=== PATIENT | female | born 1960 | race Caucasian/White ===

== ENCOUNTER 2018-08-24 14:16 | Emergency (ER) | payer SELFPAY ==
[2018-08-24] MEDS ORDERED: Sodium Chloride 0.9% 1,000 ML IV ONE (14:49)
[2018-08-24] MEDS ORDERED: cloNIDine 0.1 MG Tab PO ONE ×2 (14:49→16:05)
--- NOTE | 2018-08-24 14:58 | EDM.PDOC ---
ED HPI GENERAL MEDICAL PROBLEM - General Chief Complaint: Cardiovascular Problem Stated Complaint: HIGH BLOOD PRESSURE Time Seen by Provider: 08/24/18 14:18 Source of Information: Reports: Patient History Limitations: Reports: No Limitations - History of Present Illness INITIAL COMMENTS - FREE TEXT/NARRATIVE: HISTORY AND PHYSICAL: History of present illness: Patient is a 58-year-old female who presents to the emergency room today with concerns of elevated blood pressure. She states she was at a pre-employment physical earlier this morning and had been told her blood pressure was 150/90. At that time they wanted her to wait approximately 15 minutes before rechecking her vital signs. Her re-checked blood pressure was 200s over 100s. Patient states that she has never had any problems with high blood pressure, in fact she usually has low blood pressure. Patient reports she has had a mild headache, but otherwise felt well. Reports that she recently moved here from [place] and has been stressed due to the move and major life change.Denies any fever, chills, chest pain, shortness of breath or cough. Denies any abdominal pain, nausea, vomiting, diarrhea or constipation. Denies any recent head injury, trauma or falls. Review of systems: As per history of present illness and below otherwise all systems reviewed and negative. Past medical history: As per history of present illness and as reviewed below otherwise noncontributory. Surgical history: As per history of present illness and as reviewed below otherwise noncontributory. Social history: No reported history of drug or alcohol abuse. Family history: As per history of present illness and as reviewed below otherwise noncontributory. Physical exam: General: Well-developed and well-nourished 58 she'll female. Alert and oriented. Nontoxic appearing and in no acute distress. HEENT: Atraumatic, normocephalic, pupils equal and reactive bilaterally, negative for conjunctival pallor or scleral icterus, mucous membranes moist, throat clear, neck supple, nontender, trachea midline. No drooling or trismus noted. No meningeal signs Lungs: Clear to auscultation, breath sounds equal bilaterally, chest nontender. Heart: S1S2, regular rate and rhythm without overt murmur Abdomen: Soft, nondistended, nontender. Negative for masses or hepatosplenomegaly. Negative for costovertebral tenderness. Pelvis: Stable nontender. Genitourinary: Deferred. Rectal: Deferred. Skin: Intact, warm, dry. No lesions or rashes noted. Extremities: Atraumatic, negative for cords or calf pain. Neurovascular unremarkable. Neuro: Awake, alert, oriented. Cranial nerves II through XII unremarkable. Cerebellum unremarkable. Motor and sensory unremarkable throughout. Exam nonfocal. Notes: Lab work is appropriate with no acute findings. After the clonidine and IV fluids her blood pressure is 149/92. She states she feels much better and continues to discuss her recent anxiety of moving and trying to find employment while here. The son is at the bedside and states that he will help her continue to monitor her blood pressure. We discussed following up with a primary care provider if she continues to have symptoms of anxiety. I will give her a limited amount of Ativan for home use as she does appear reliable and she shouldn't responsibly. Diagnostics: CBC, CMP, UA, EKG Therapeutics: Normal Saline, Clonidine Prescription: Ativan 0.5 (#8) Impression: High blood pressure Anxiety Plan: 1. Avoid any caffeinated products or stimulants (coffee, soft drinks, chocolate , etc...) 2. Please establish care with a primary care provider for further evaluation and management. 3. The prescribed medication as needed and as directed. This medication does cause drowsiness a do not take it will driving her needing to be functioning outside of the house. 4. Return to the ED as needed and as discussed. Definitive disposition and diagnosis as appropriate pending reevaluation and review of above. 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: Musculoskeletal History: Reports: None Neurological History: Reports: None Psychiatric History: Reports: None Endocrine/Metabolic History: Reports: None Hematologic History: Reports: None Immunologic History: Reports: None Oncologic (Cancer) History: Reports: None Dermatologic History: Reports: None - Infectious Disease History Infectious Disease History: Reports: Chicken Pox - Past Surgical History Head Surgeries/Procedures: Reports: None HEENT Surgical History: Reports: None Cardiovascular Surgical History: Reports: None Respiratory Surgical History: Reports: None GI Surgical History: Reports: None Female Surgical History: Reports: None Endocrine Surgical History: Reports: None Neurological Surgical History: Reports: None Musculoskeletal Surgical History: Reports: None Oncologic Surgical History: Reports: None Dermatological Surgical History: Reports: Plastic Surgical Reconstruction/Repair Social & Family History - Family History Cardiac: Reports: Hypertension - Tobacco Use Smoking Status *Q: Current Every Day Smoker Years of Tobacco use: 30 Packs/Tins Daily: 1 - Caffeine Use Caffeine Use: Reports: Coffee ED ROS GENERAL - Review of Systems Review Of Systems: ROS reveals no pertinent complaints other than HPI. ED EXAM, GENERAL - Physical Exam Exam: See Below (See dictation) Course - Vital Signs Last Recorded V/S: Last Vital Signs Temp 97.0 F 08/24/18 14:21 Pulse 99 08/24/18 14:21 Resp 18 08/24/18 14:21 BP 207/108 H 08/24/18 15:11 Pulse Ox 99 08/24/18 14:21 - Orders/Labs/Meds Orders: Active Orders 24 hr Category Date Time Status EKG Documentation Completion [RC] STAT Care 08/24/18 14:49 Active Labs: Laboratory Tests 08/24/18 08/24/18 08/24/18 Range/Units 15:01 15:01 15:05 WBC 11.36 H (4.0-11.0) K/uL RBC 4.41 (4.30-5.90) M/uL Hgb 14.0 (12.0-16.0) g/dL Hct 41.2 (36.0-46.0) % MCV 93.4 (80.0-98.0) fL MCH 31.7 (27.0-32.0) pg MCHC 34.0 (31.0-37.0) g/dL RDW Std Deviation 45.6 (28.0-62.0) fl RDW Coeff of Tamy 13 (11.0-15.0) % Plt Count 368 (150-400) K/uL MPV 10.20 (7.40-12.00) fL Neut % (Auto) 66.8 (48.0-80.0) % Lymph % (Auto) 26.2 (16.0-40.0) % Spencer % (Auto) 6.3 (0.0-15.0) % Eos % (Auto) 0.4 (0.0-7.0) % Baso % (Auto) 0.3 (0.0-1.5) % Neut # (Auto) 7.6 H (1.4-5.7) K/uL Lymph # (Auto) 3.0 H (0.6-2.4) K/uL Spencer # (Auto) 0.7 (0.0-0.8) K/uL Eos # (Auto) 0.1 (0.0-0.7) K/uL Baso # (Auto) 0.0 (0.0-0.1) K/uL Nucleated RBC % 0.0 /100WBC Nucleated RBCs # 0 K/uL Sodium 140 (136-145) mmol/L Potassium 3.6 (3.5-5.1) mmol/L Chloride 104 (98-107) mmol/L Carbon Dioxide 26.9 (21.0-32.0) mmol/L BUN 10 (7.0-18.0) mg/dL Creatinine 0.5 L (0.6-1.0) mg/dL Est Cr Clr Drug Dosing 99.37 mL/min Estimated GFR (MDRD) > 60.0 ml/min Glucose 99 (74-106) mg/dL Calcium 9.7 (8.5-10.1) mg/dL Total Bilirubin 0.4 (0.2-1.0) mg/dL AST 16 (15-37) IU/L ALT 18 (14-63) IU/L Alkaline Phosphatase 87 (46-116) U/L Total Protein 7.7 (6.4-8.2) g/dL Albumin 4.2 (3.4-5.0) g/dL Globulin 3.5 (2.0-3.5) g/dL Albumin/Globulin Ratio 1.2 L (1.3-2.8) Urine Color YELLOW Urine Appearance CLEAR Urine pH 6.0 (5.0-8.0) Ur Specific [place] 1.010 (1.001-1.035) Urine Protein NEGATIVE (NEGATIVE) mg/dL Urine Glucose (UA) NEGATIVE (NEGATIVE) mg/dL Urine Ketones TRACE H (NEGATIVE) mg/dL Urine Occult Blood NEGATIVE (NEGATIVE) Urine Nitrite NEGATIVE (NEGATIVE) Urine Bilirubin NEGATIVE (NEGATIVE) Urine Urobilinogen 0.2 (<2.0) EU/dL Ur Leukocyte Esterase NEGATIVE (NEGATIVE) Urine RBC 0-1 (0-2/HPF) Urine WBC 0-1 (0-5/HPF) Ur Epithelial Cells RARE (NONE-FEW) Urine Bacteria OCCASIONAL (NEGATIVE) Meds: Medications Discontinued Medications Generic Name Dose Route Start Last Admin Trade Name Freq PRN Reason Stop Dose Admin Clonidine HCl 0.1 mg 08/24/18 14:49 08/24/18 15:11 Catapres PO 08/24/18 14:50 0.1 mg ONETIME ONE Administration Clonidine HCl 0.1 mg 08/24/18 16:05 Catapres PO 08/24/18 16:06 ONETIME ONE Sodium Chloride 1,000 mls @ 999 mls/hr 08/24/18 14:49 08/24/18 15:11 Normal Saline IV 08/24/18 15:49 999 mls/hr STAT ONE Administration Departure - Departure Time of Disposition: 16:37 Disposition: Home, Self-Care 01 Clinical Impression: Anxiety High blood pressure Qualifiers: Hypertension type: unspecified Qualified Code(s): I10 - Essential (primary) hypertension Prescriptions: LORazepam [Ativan] 0.5 mg PO Q4H PRN #8 tab PRN Reason: Anxiety Referrals: PCP,None [Primary Care Provider] - Forms: ED Department Discharge Additional Instructions: The following information is given to patients seen in the emergency department who are being discharged to home. This information is to outline your options for follow-up care. We provide all patients seen in our emergency department with a follow-up referral. The need for follow-up, as well as the timing and circumstances, are variable depending upon the specifics of your emergency department visit. If you don't have a primary care physician on staff, we will provide you with a referral. We always advise you to contact your personal physician following an emergency department visit to inform them of the circumstance of the visit and for follow-up with them and/or the need for any referrals to a consulting specialist. The emergency department will also refer you to a specialist when appropriate. This referral assures that you have the opportunity for follow-up care with a specialist. All of these measure are taken in an effort to provide you with optimal care, which includes your follow-up. Under all circumstances we always encourage you to contact your private physician who remains a resource for coordinating your care. When calling for follow-up care, please make the office aware that this follow-up is from your recent emergency room visit. If for any reason you are refused follow-up, please contact the [facility] at and asked to speak to the emergency department charge nurse. [facility] [address] [place] [id number] [facility] [address] [place] [id number] 1. Avoid any caffeinated products or stimulants (coffee, soft drinks, chocolate , etc...) 2. Please establish care with a primary care provider for further evaluation and management. 3. The prescribed medication as needed and as directed. This medication does cause drowsiness a do not take it will driving her needing to be functioning outside of the house. - My Orders Last 24 Hours: My Active Orders 08/24/18 14:49 EKG Documentation Completion [RC] STAT - Assessment/Plan Last 24 Hours: My Active Orders 08/24/18 14:49 EKG Documentation Completion [RC] STAT
[2018-08-24 16:01] LABS: CHLORIDE,CL 104 mmol/L (98-107); SODIUM,NA 140 mmol/L (136-145)
== END 2018-08-24 16:49 | disposition home or self-care (01) ==
LOC: MW.ED 14:16
DX: R03.0 Elevated blood-pressure reading, without diagnosis of hypertension (principal); F41.9 Anxiety disorder, unspecified; F17.210 Nicotine dependence, cigarettes, uncomplicated; Z79.899 Other long term (current) drug therapy
CPT/HCPCS: 36415; 80053; 81001; 85025; 93005; A9270; J7040; 99283

== ENCOUNTER 2019-09-15 09:15 | Observation (INO) | payer OTHER ==
[2019-09-15] MEDS ORDERED: Aspirin 81 MG Tab.Chew PO ONE (09:33)
[2019-09-15] MEDS ORDERED: Alum Hydrox/Mag Hydrox/Simeth 15 ML, Lidocaine 2% 5 ML PO ONE ×2 (09:38)
--- NOTE | 2019-09-15 10:03 | EDM.PDOC ---
ED HPI GENERAL MEDICAL PROBLEM - General Chief Complaint: Cardiovascular Problem Stated Complaint: HIGH BLOOD PRESSURE Time Seen by Provider: 09/15/19 09:58 - History of Present Illness INITIAL COMMENTS - FREE TEXT/NARRATIVE: Patient is a 59-year-old female presenting today with "funny sensation of her chest" since this morning. States the sensation did not wake her up; she woke up and felt weird pressure; however denies any fevers, chills, body aches, severe chest pain, palpitations, nausea, vomiting, diarrhea. States she has been more or less compliant with her medication of lisinopril, ASA and Wellbutrin. Did take her medication this morning and currently only feels a pressure sensation in the upper belly. Patient endorses smoking 2 cigarettes prior to coming to the ER and drinking 1/2 cup of coffee. Onset: Today Duration: Hour(s): (1) Mid-Sternal Chest Pain Score (Numeric/FACES): 5 - Related Data Allergies Allergy/AdvReac Type Severity Reaction Status Date / Time No Known Allergies Allergy Verified 09/15/19 09:26 Home Meds: Home Meds Aspirin [Adult Low Dose Aspirin EC] 81 mg PO DAILY 09/15/19 [History] Cholecalciferol (Vitamin D3) [Vitamin D] 1 tab PO DAILY 09/15/19 [History] Lisinopril 20 mg PO DAILY 09/15/19 [History] Underwood-3/DHA/Epa/Fish Oil [Fish Oil 1,000 mg Softgel] 1 tab PO DAILY 09/15/19 [ History] atorvaSTATin Calcium [Atorvastatin Calcium] 40 mg PO BEDTIME 09/15/19 [History] Past Medical History HEENT History: Reports: None Cardiovascular History: Reports: High Cholesterol, Hypertension Respiratory History: Reports: None Gastrointestinal History: Reports: None Genitourinary History: Reports: None 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 History: Reports: None Neurological History: Reports: None Psychiatric History: Reports: None Endocrine/Metabolic History: Reports: None Hematologic History: Reports: None Immunologic History: Reports: None Oncologic (Cancer) History: Reports: None Dermatologic History: Reports: None - Infectious Disease History Infectious Disease History: Reports: Chicken Pox - Past Surgical History Head Surgeries/Procedures: Reports: None HEENT Surgical History: Reports: None Cardiovascular Surgical History: Reports: None Respiratory Surgical History: Reports: None GI Surgical History: Reports: None Female Surgical History: Reports: None Endocrine Surgical History: Reports: None Neurological Surgical History: Reports: None Musculoskeletal Surgical History: Reports: None Oncologic Surgical History: Reports: None Dermatological Surgical History: Reports: Plastic Surgical Reconstruction/Repair Social & Family History - Family History Family Medical History: Noncontributory Cardiac: Reports: Hypertension - Tobacco Use Smoking Status *Q: Current Every Day Smoker Years of Tobacco use: 20 Packs/Tins Daily: 0.5 - Caffeine Use Caffeine Use: Reports: None - Recreational Drug Use Recreational Drug Use: No ED ROS GENERAL - Review of Systems Review Of Systems: See Below Constitutional: Denies: Fever, Chills HEENT: Reports: No Symptoms Respiratory: Denies: Shortness of Breath, Wheezing, Pleuritic Chest Pain, Cough Cardiovascular: Reports: Blood Pressure Problem. Denies: Dyspnea on Exertion, Edema, Lightheadedness, Orthopnea GI/Abdominal: Reports: Abdominal Pain. Denies: Constipation, Diarrhea, Decreased Appetite : Reports: No Symptoms. Denies: Discharge, Dysuria Musculoskeletal: Denies: No Symptoms Neurological: Reports: No Symptoms. Denies: Confusion, Dizziness, Headache Psychiatric: Reports: No Symptoms ED EXAM, GENERAL - Physical Exam Exam: See Below Exam Limited By: No Limitations General Appearance: Alert, No Apparent Distress Nose: Normal Inspection Throat/Mouth: Normal Inspection Head: Atraumatic, Normocephalic Respiratory/Chest: No Respiratory Distress, Other (mild coarse BS b/l. no wheezing ) Cardiovascular: Normal Peripheral Pulses, Regular Rate, Rhythm, No Edema, No Murmur GI/Abdominal: Normal Bowel Sounds, Soft, Non-Tender, Other (pain localized to epigastrum) Neurological: Alert, Oriented, CN II-XII Intact Psychiatric: Normal Affect, Normal Mood Skin Exam: Warm, Dry Course - Vital Signs Last Recorded V/S: Last Vital Signs Temp 97.2 F 09/15/19 09:20 Pulse 83 09/15/19 10:08 Resp 13 09/15/19 10:08 BP 165/96 H 09/15/19 10:08 Pulse Ox 98 09/15/19 10:08 - Orders/Labs/Meds Orders: Active Orders 24 hr Category Date Time Status Admission Status [Patient Status] [ADT] Stat ADT 09/15/19 11:03 Active EKG Documentation Completion [RC] STAT Care 09/15/19 09:18 Active Telemetry Monitoring [Cardiac Monitoring] [RC] . Care 09/15/19 11:05 Active DIRECTED Labs: Laboratory Tests 09/15/19 09/15/19 Range/Units 09:20 09:20 WBC 12.51 H (4.0-11.0) K/uL RBC 4.04 L (4.30-5.90) M/uL Hgb 13.1 (12.0-16.0) g/dL Hct 39.2 (36.0-46.0) % MCV 97.0 (80.0-98.0) fL MCH 32.4 H (27.0-32.0) pg MCHC 33.4 (31.0-37.0) g/dL RDW Std Deviation 48.2 (28.0-62.0) fl RDW Coeff of Tamy 14 (11.0-15.0) % Plt Count 416 H (150-400) K/uL MPV 9.80 (7.40-12.00) fL Neut % (Auto) 66.3 (48.0-80.0) % Lymph % (Auto) 27.4 (16.0-40.0) % Baldwin % (Auto) 5.1 (0.0-15.0) % Eos % (Auto) 0.8 (0.0-7.0) % Baso % (Auto) 0.4 (0.0-1.5) % Neut # (Auto) 8.3 H (1.4-5.7) K/uL Lymph # (Auto) 3.4 H (0.6-2.4) K/uL Baldwin # (Auto) 0.6 (0.0-0.8) K/uL Eos # (Auto) 0.1 (0.0-0.7) K/uL Baso # (Auto) 0.1 (0.0-0.1) K/uL Nucleated RBC % 0.0 /100WBC Nucleated RBCs # 0 K/uL Sodium 140 (136-145) mmol/L Potassium 4.0 (3.5-5.1) mmol/L Chloride 104 (98-107) mmol/L Carbon Dioxide 24.4 (21.0-32.0) mmol/L BUN 15 (7.0-18.0) mg/dL Creatinine 0.7 (0.6-1.0) mg/dL Est Cr Clr Drug Dosing 76.57 mL/min Estimated GFR (MDRD) > 60.0 ml/min Glucose 100 (74-106) mg/dL Calcium 9.5 (8.5-10.1) mg/dL Magnesium 1.8 (1.8-2.4) mg/dL Total Bilirubin 0.3 (0.2-1.0) mg/dL AST 27 (15-37) IU/L ALT 35 (14-63) IU/L Alkaline Phosphatase 75 (46-116) U/L Troponin I < 0.050 (0.000-0.056) ng/mL Total Protein 8.1 (6.4-8.2) g/dL Albumin 4.2 (3.4-5.0) g/dL Globulin 3.9 (2.6-4.0) g/dL Albumin/Globulin Ratio 1.1 (0.9-1.6) TSH 3rd Generation 1.56 (0.36-3.74) uIU/mL Meds: Medications Discontinued Medications Generic Name Dose Route Start Last Admin Trade Name Freq PRN Reason Stop Dose Admin Aspirin 324 mg 09/15/19 09:33 09/15/19 09:45 Aspirin PO 09/15/19 09:34 324 mg ONETIME ONE Administration Al Hydroxide/Mg Hydroxide 15 0 ml 09/15/19 09:38 09/15/19 09:45 ml/ Lidocaine HCl 5 ml PO 09/15/19 09:39 1 each ONETIME ONE Administration Departure - Departure Time of Disposition: 11:09 Disposition: Refer to Observation Clinical Impression: Chest pain Referrals: Patsy Cee MD [Primary Care Provider] - Forms: ED Department Discharge - Problem List Review Problem List Initiated/Reviewed/Updated: Yes - My Orders Last 24 Hours: My Active Orders 09/15/19 09:18 EKG Documentation Completion [RC] STAT 09/15/19 11:03 Admission Status [Patient Status] [ADT] Stat 09/15/19 11:05 Telemetry Monitoring [Cardiac Monitoring] [RC] . DIRECTED - Assessment/Plan Last 24 Hours: My Active Orders 09/15/19 09:18 EKG Documentation Completion [RC] STAT 09/15/19 11:03 Admission Status [Patient Status] [ADT] Stat 09/15/19 11:05 Telemetry Monitoring [Cardiac Monitoring] [RC] . DIRECTED Assessment:: 1. Atypical chest pain 2. elevated BP w/ history of HTN 3. tobacco abuse
--- NOTE | 2019-09-15 10:06 | CR ---
INDICATION: pain/shortness of breath INDICATION: Pain/shortness of breath. TECHNIQUE: Chest 2 views. COMPARISON: None FINDINGS: Cardiovascular and mediastinum: Heart size and vasculature are normal in caliber and appearance. Mediastinum is within normal limits. Lungs and pleural spaces: Lungs are clear. No sign of infiltrate or mass. No sign of pleural effusion. No pneumothorax. Bones and soft tissues: No significant findings. IMPRESSION: There is no acute airspace disease. Dictated by Prince Valencia MD @ 09/15/2019 10:04:29 AM Dictated by: Prince Valencia MD @ 09/15/2019 10:04:34 (Electronically Signed)
[2019-09-15 10:21] LABS: BLOOD UREA NITROGEN,BUN 15 mg/dL (7.0-18.0); CARBON DIOXIDE,CO2 24.4 mmol/L (21.0-32.0); CHLORIDE,CL 104 mmol/L (98-107); GLUCOSE RANDOM 100 mg/dL (74-106); SODIUM,NA 140 mmol/L (136-145)
[2019-09-15] MEDS ORDERED: Morphine 10 MG/ML Syringe IVPUSH PRN (13:46)
[2019-09-15] MEDS ORDERED: Acetaminophen 325 MG Tab PO PRN (13:46)
[2019-09-15] MEDS ORDERED: Ondansetron 4 MG Tab.DIS PO PRN (13:46)
[2019-09-15] MEDS ORDERED: Ondansetron 4 MG/2 ML SDV IVPUSH PRN (13:46)
[2019-09-15] MEDS ORDERED: Temazepam 15 MG Cap PO PRN (13:46)
[2019-09-15] MEDS ORDERED: Enoxaparin 40 MG/0.4 ML Syringe SUBCUT SCH (14:00)
--- NOTE | 2019-09-15 14:02 | PCM.HP.2 ---
H&P History of Present Illness - General Date of Service: 09/15/19 Admit Problem/Dx: Admission Diagnosis/Problem Admission Diagnosis/Problem Chest pain - History of Present Illness Initial Comments - Free Text/Narative: 59 y/o female with history of hypertension, tobacco abuse. Presenting to the ER complaining of epigastric pain with radiation to the back. Some diaphoresis. No paresthesias up neck or arms. No vomiting. Patient states she has been taking her blood pressure meds for the past few months. States that this morning she had a crampy, pressure like epigastric pain. Lasted few minutes and then comes and goes. She went to work but then she was not feeling well so she checked her blood pressure and it was elevated SBP 180-190's. Endorsing some palpitations. No Chest pain or dyspnea. No lower extremity swelling. In the ER, she was found to be hypertensive in 190/90's. EKG showed sinus rhythm. No acute ST changes. Some PVCs. Initial troponin negative. Mid-Sternal Chest Pain Score (Numeric/FACES): 5 - Related Data Allergies/Adverse Reactions: Allergies Allergy/AdvReac Type Severity Reaction Status Date / Time No Known Allergies Allergy Verified 09/15/19 12:46 Home Medications: Home Meds Aspirin [Adult Low Dose Aspirin EC] 81 mg PO DAILY 09/15/19 [History] Cholecalciferol (Vitamin D3) [Vitamin D] 1 tab PO DAILY 09/15/19 [History] Lisinopril 20 mg PO DAILY 09/15/19 [History] [place] [facility]-3/DHA/Epa/Fish Oil [Fish Oil 1,000 mg Softgel] 1 tab PO DAILY 09/15/19 [ History] atorvaSTATin Calcium [Atorvastatin Calcium] 40 mg PO BEDTIME 09/15/19 [History] Past Medical History HEENT History: Reports: None Cardiovascular History: Reports: High Cholesterol, Hypertension Respiratory History: Reports: None Gastrointestinal History: Reports: None Genitourinary History: Reports: None MANAGER FRONT History: Reports: Musculoskeletal History: Reports: None Neurological History: Reports: None Psychiatric History: Reports: None Endocrine/Metabolic History: Reports: None Hematologic History: Reports: None Immunologic History: Reports: None Oncologic (Cancer) History: Reports: None Dermatologic History: Reports: None - Infectious Disease History Infectious Disease History: Reports: Chicken Pox, Mumps - Past Surgical History Head Surgeries/Procedures: Reports: None HEENT Surgical History: Reports: None Cardiovascular Surgical History: Reports: None Respiratory Surgical History: Reports: None GI Surgical History: Reports: None Female Surgical History: Reports: None Endocrine Surgical History: Reports: None Neurological Surgical History: Reports: None Musculoskeletal Surgical History: Reports: None Oncologic Surgical History: Reports: None Dermatological Surgical History: Reports: Plastic Surgical Reconstruction/Repair Social & Family History - Family History Family Medical History: Noncontributory Cardiac: Reports: Hypertension - Tobacco Use Smoking Status *Q: Current Every Day Smoker Years of Tobacco use: 30 Packs/Tins Daily: 1 Used Tobacco, but Quit: No Second Hand Smoke Exposure: Yes - Caffeine Use Caffeine Use: Reports: Coffee, Soda - Recreational Drug Use Recreational Drug Use: No H&P Review of Systems - Review of Systems: Review Of Systems: ROS reveals no pertinent complaints other than HPI. Exam - Exam Exam: See Below - Vital Signs Vital Signs: Last Vital Signs Temp 36.1 C 09/15/19 13:46 Pulse 73 09/15/19 13:46 Resp 16 09/15/19 13:46 BP 156/83 H 09/15/19 13:46 Pulse Ox 99 09/15/19 13:46 Weight: 65.7 kg - Exam General: Alert, Oriented, Cooperative Lungs: Clear to Auscultation, Normal Respiratory Effort. No: Crackles, Wheezing Cardiovascular: Regular Rate, Regular Rhythm GI/Abdominal Exam: Normal Bowel Sounds, Soft, Non-Tender, No Distention Extremities: Normal Inspection, No Pedal Edema Skin: Warm, Dry - Patient Data Lab Results Last 24 hrs: Laboratory Results - last 24 hr 09/15/19 09/15/19 Range/Units 09:20 09:20 WBC 12.51 H (4.0-11.0) K/uL RBC 4.04 L (4.30-5.90) M/uL Hgb 13.1 (12.0-16.0) g/dL Hct 39.2 (36.0-46.0) % MCV 97.0 (80.0-98.0) fL MCH 32.4 H (27.0-32.0) pg MCHC 33.4 (31.0-37.0) g/dL RDW Std Deviation 48.2 (28.0-62.0) fl RDW Coeff of Tamy 14 (11.0-15.0) % Plt Count 416 H (150-400) K/uL MPV 9.80 (7.40-12.00) fL Neut % (Auto) 66.3 (48.0-80.0) % Lymph % (Auto) 27.4 (16.0-40.0) % [place] % (Auto) 5.1 (0.0-15.0) % Eos % (Auto) 0.8 (0.0-7.0) % Baso % (Auto) 0.4 (0.0-1.5) % Neut # (Auto) 8.3 H (1.4-5.7) K/uL Lymph # (Auto) 3.4 H (0.6-2.4) K/uL [place] # (Auto) 0.6 (0.0-0.8) K/uL Eos # (Auto) 0.1 (0.0-0.7) K/uL Baso # (Auto) 0.1 (0.0-0.1) K/uL Nucleated RBC % 0.0 /100WBC Nucleated RBCs # 0 K/uL Sodium 140 (136-145) mmol/L Potassium 4.0 (3.5-5.1) mmol/L Chloride 104 (98-107) mmol/L Carbon Dioxide 24.4 (21.0-32.0) mmol/L BUN 15 (7.0-18.0) mg/dL Creatinine 0.7 (0.6-1.0) mg/dL Est Cr Clr Drug Dosing 76.57 mL/min Estimated GFR (MDRD) > 60.0 ml/min Glucose 100 (74-106) mg/dL Calcium 9.5 (8.5-10.1) mg/dL Magnesium 1.8 (1.8-2.4) mg/dL Total Bilirubin 0.3 (0.2-1.0) mg/dL AST 27 (15-37) IU/L ALT 35 (14-63) IU/L Alkaline Phosphatase 75 (46-116) U/L Troponin I < 0.050 (0.000-0.056) ng/mL Total Protein 8.1 (6.4-8.2) g/dL Albumin 4.2 (3.4-5.0) g/dL Globulin 3.9 (2.6-4.0) g/dL Albumin/Globulin Ratio 1.1 (0.9-1.6) TSH 3rd Generation 1.56 (0.36-3.74) uIU/mL Result Diagrams: 09/15/19 09:20 09/15/19 09:20 Problem List Initiated/Reviewed/Updated: Yes Orders Last 24hrs: Active Orders 24 hr Category Date Time Status Admission Status [Patient Status] [ADT] Stat ADT 09/15/19 11:23 Active Bedrest Bathroom Privileges [RC] ASDIRECTED Care 09/15/19 13:46 Active Oxygen Therapy [RC] PRN Care 09/15/19 13:46 Active Telemetry Monitoring [Cardiac Monitoring] [RC] . Care 09/15/19 13:09 Active DIRECTED Telemetry Monitoring [Cardiac Monitoring] [RC] Q8H Care 09/15/19 11:05 Inactive VTE/DVT Education [RC] PER UNIT ROUTINE Care 09/15/19 13:46 Active Vital Signs [RC] Q4H Care 09/15/19 13:46 Active Heart Healthy Diet [DIET] Diet 09/15/19 Dinner Active Acetaminophen [Tylenol] Med 09/15/19 13:46 Active 650 mg PO Q4H PRN Enoxaparin [Lovenox] Med 09/15/19 14:00 Active 40 mg SUBCUT Q24H Morphine Med 09/15/19 13:46 Active 2 mg IVPUSH Q2H PRN Ondansetron [Zofran ODT] Med 09/15/19 13:46 Active 4 mg PO Q4H PRN Ondansetron [Zofran] Med 09/15/19 13:46 Active 4 mg IVPUSH Q4H PRN Temazepam [Restoril] Med 09/15/19 13:46 Active 15 mg PO BEDTIME PRN Resuscitation Status Routine Resus Stat 09/15/19 13:46 Ordered Medication Orders Acetaminophen (Tylenol) 650 mg PO Q4H PRN PRN Reason: Pain (Mild 1-3)/fever Enoxaparin Sodium (Lovenox) 40 mg SUBCUT Q24H DANNY Morphine Sulfate (Morphine) 2 mg IVPUSH Q2H PRN PRN Reason: Pain (severe 7-10) Stop: 09/16/19 13:47 Ondansetron HCl (Zofran Odt) 4 mg PO Q4H PRN PRN Reason: nausea, able to take PO Ondansetron HCl (Zofran) 4 mg IVPUSH Q4H PRN PRN Reason: Nausea Temazepam (Restoril) 15 mg PO BEDTIME PRN PRN Reason: Sleep Assessment/Plan Comment:: A: 1. Atypical chest pain, ACS rule out 2. PMH hypertension, dyslipidemia, tobacco abuse P: 1. Atypical chest pain. Continue telemetry. Ordered serial troponins. Nitroglycerin PRN and morphine for chest pain. Will start omeprazole and see if that helps. Will order Echo and patient will need outpatient EKG stress test. 2. Hypertension. Will resume home medications and monitor. Will add Labetalol PRN for SBP>180. Dispo: 1-2 days.
[2019-09-15] MEDS ORDERED: atorvaSTATin 20 MG Tab PO SCH (21:00)
[2019-09-15] MEDS ORDERED: atorvaSTATin 40 MG Tab PO SCH (21:00)
[2019-09-16 06:59] LABS: BLOOD UREA NITROGEN,BUN 19 mg/dL (7.0-18.0); CARBON DIOXIDE,CO2 28.2 mmol/L (21.0-32.0); CHLORIDE,CL 104 mmol/L (98-107); GLUCOSE RANDOM 90 mg/dL (74-106); POTASSIUM,K 4.7 mmol/L (3.5-5.1); SODIUM,NA 140 mmol/L (136-145)
[2019-09-16] MEDS ORDERED: Aspirin 81 MG Tab.EC PO SCH (09:00)
[2019-09-16] MEDS ORDERED: buPROPion 150 MG Tab.ER PO SCH (09:00)
[2019-09-16] MEDS ORDERED: Lisinopril 10 MG Tab PO SCH (09:00)
--- NOTE | 2019-09-16 10:58 | PCM.DCSUM1 ---
<Han Cruz - Last Filed: 09/16/19 18:44> Discharge Summary - Hospital Course Free Text/Narrative:: 59 y/o female with history of tobacco abuse who presented to the ER complaining of epigastric pain and weakness. She was admitted for ACS rule out. EKG did not show any ST changes. Serial troponins were negative. She did well during this hospitalization. Her symptoms had resolved. Echo results were pending at time of discharge. She was prescribed omeprazole and she will need an EKG stress test as outpatient and follow-up with cardiology. - Discharge Data Discharge Date: 09/16/19 Discharge Disposition: Home, Self-Care 01 Condition: Stable - Referral to Home Health Primary Care Physician: Patsy Cee MD - Patient Instructions Diet: Heart Healthy Diet Activity: As Tolerated Notify Provider of: Fever, Increased Pain, Swelling and Redness, Nausea and/or Vomiting - Discharge Plan *PRESCRIPTION DRUG MONITORING PROGRAM REVIEWED*: Not Applicable *COPY OF PRESCRIPTION DRUG MONITORING REPORT IN PATIENT AFTAB: Not Applicable Prescriptions/Med Rec: Omeprazole 20 mg PO DAILY #30 tablet. Home Medications: Home Meds Aspirin [Adult Low Dose Aspirin EC] 81 mg PO DAILY 09/15/19 [History] Cholecalciferol (Vitamin D3) [Vitamin D] 1 tab PO DAILY 09/15/19 [History] Lisinopril 20 mg PO DAILY 09/15/19 [History] [place]-3/DHA/Epa/Fish Oil [Fish Oil 1,000 mg Softgel] 1 tab PO DAILY 09/15/19 [ History] atorvaSTATin Calcium [Atorvastatin Calcium] 20 mg PO BEDTIME 09/15/19 [History] buPROPion HCl [Bupropion Xl] 300 mg PO DAILY 09/15/19 [History] Omeprazole 20 mg PO DAILY #30 tablet. 09/16/19 [Rx] Patient Handouts: Exercise Stress Echocardiogram, [id number], Nonspecific Chest Pain, [id number], Omeprazole tablets (OTC) Referrals: Patsy Cee MD [Primary Care Provider] - 10/01/19 10:00 am - Discharge Summary/Plan Comment DC Time >30 min.: No - Patient Data Vitals - Most Recent: Last Vital Signs Temp 36.7 C 09/16/19 07:56 Pulse 79 09/16/19 07:30 Resp 16 09/16/19 07:30 BP 104/70 09/16/19 09:18 Pulse Ox 95 09/16/19 07:30 Weight - Most Recent: 65.7 kg I&O - Last 24 hours: Intake & Output 09/15/19 09/16/19 09/16/19 22:59 06:59 14:59 Intake Total 480 520 Output Total 550 Balance 480 -30 Lab Results - Last 24 hrs: Laboratory Results - last 24 hr 09/15/19 09/15/19 09/15/19 Range/Units 09:20 15:01 21:05 WBC (4.0-11.0) K/uL RBC (4.30-5.90) M/uL Hgb (12.0-16.0) g/dL Hct (36.0-46.0) % MCV (80.0-98.0) fL MCH (27.0-32.0) pg MCHC (31.0-37.0) g/dL RDW Std Deviation (28.0-62.0) fl RDW Coeff of Tamy (11.0-15.0) % Plt Count (150-400) K/uL MPV (7.40-12.00) fL Neut % (Auto) (48.0-80.0) % Lymph % (Auto) (16.0-40.0) % [place] % (Auto) (0.0-15.0) % Eos % (Auto) (0.0-7.0) % Baso % (Auto) (0.0-1.5) % Neut # (Auto) (1.4-5.7) K/uL Lymph # (Auto) (0.6-2.4) K/uL [place] # (Auto) (0.0-0.8) K/uL Eos # (Auto) (0.0-0.7) K/uL Baso # (Auto) (0.0-0.1) K/uL Nucleated RBC % /100WBC Nucleated RBCs # K/uL Sodium (136-145) mmol/L Potassium (3.5-5.1) mmol/L Chloride (98-107) mmol/L Carbon Dioxide (21.0-32.0) mmol/L BUN (7.0-18.0) mg/dL Creatinine (0.6-1.0) mg/dL Est Cr Clr Drug Dosing mL/min Estimated GFR (MDRD) ml/min Glucose (74-106) mg/dL Calcium (8.5-10.1) mg/dL Total Bilirubin (0.2-1.0) mg/dL AST (15-37) IU/L ALT (14-63) IU/L Alkaline Phosphatase (46-116) U/L Troponin I < 0.050 < 0.050 (0.000-0.056) ng/mL Total Protein (6.4-8.2) g/dL Albumin (3.4-5.0) g/dL Globulin (2.6-4.0) g/dL Albumin/Globulin Ratio (0.9-1.6) Lipase 218 (73-393) U/L 09/16/19 09/16/19 Range/Units 06:04 06:04 WBC 8.94 (4.0-11.0) K/uL RBC 3.79 L (4.30-5.90) M/uL Hgb 12.0 (12.0-16.0) g/dL Hct 37.5 (36.0-46.0) % MCV 98.9 H (80.0-98.0) fL MCH 31.7 (27.0-32.0) pg MCHC 32.0 (31.0-37.0) g/dL RDW Std Deviation 49.6 (28.0-62.0) fl RDW Coeff of Tamy 14 (11.0-15.0) % Plt Count 384 (150-400) K/uL MPV 9.80 (7.40-12.00) fL Neut % (Auto) 47.4 L (48.0-80.0) % Lymph % (Auto) 41.5 H (16.0-40.0) % [place] % (Auto) 8.2 (0.0-15.0) % Eos % (Auto) 2.3 (0.0-7.0) % Baso % (Auto) 0.6 (0.0-1.5) % Neut # (Auto) 4.2 (1.4-5.7) K/uL Lymph # (Auto) 3.7 H (0.6-2.4) K/uL [place] # (Auto) 0.7 (0.0-0.8) K/uL Eos # (Auto) 0.2 (0.0-0.7) K/uL Baso # (Auto) 0.1 (0.0-0.1) K/uL Nucleated RBC % 0.0 /100WBC Nucleated RBCs # 0 K/uL Sodium 140 (136-145) mmol/L Potassium 4.7 (3.5-5.1) mmol/L Chloride 104 (98-107) mmol/L Carbon Dioxide 28.2 (21.0-32.0) mmol/L BUN 19 H (7.0-18.0) mg/dL Creatinine 0.8 (0.6-1.0) mg/dL Est Cr Clr Drug Dosing 67.00 mL/min Estimated GFR (MDRD) > 60.0 ml/min Glucose 90 (74-106) mg/dL Calcium 8.7 (8.5-10.1) mg/dL Total Bilirubin 0.3 (0.2-1.0) mg/dL AST 19 (15-37) IU/L ALT 29 (14-63) IU/L Alkaline Phosphatase 64 (46-116) U/L Troponin I (0.000-0.056) ng/mL Total Protein 7.0 (6.4-8.2) g/dL Albumin 3.5 (3.4-5.0) g/dL Globulin 3.5 (2.6-4.0) g/dL Albumin/Globulin Ratio 1.0 (0.9-1.6) Lipase (73-393) U/L Med Orders - Current: Current Medications Acetaminophen (Tylenol) 650 mg PO Q4H PRN PRN Reason: Pain (Mild 1-3)/fever Last Admin: 09/16/19 07:56 Dose: 650 mg Aspirin (Halfprin) 81 mg PO DAILY [facility] Last Admin: 09/16/19 09:18 Dose: 81 mg Atorvastatin Calcium (Lipitor) 20 mg PO BEDTIME [facility] Last Admin: 09/15/19 20:53 Dose: 20 mg Bupropion HCl (Wellbutrin Xl) 300 mg PO DAILY [facility] Last Admin: 09/16/19 09:18 Dose: 300 mg Enoxaparin Sodium (Lovenox) 40 mg SUBCUT Q24H [facility] Last Admin: 09/15/19 14:17 Dose: 40 mg Lisinopril (Prinivil) 20 mg PO DAILY [facility] Last Admin: 09/16/19 09:18 Dose: 20 mg Morphine Sulfate (Morphine) 2 mg IVPUSH Q2H PRN PRN Reason: Pain (severe 7-10) Stop: 09/16/19 13:47 Last Admin: 09/15/19 14:16 Dose: 2 mg Ondansetron HCl (Zofran Odt) 4 mg PO Q4H PRN PRN Reason: nausea, able to take PO Ondansetron HCl (Zofran) 4 mg IVPUSH Q4H PRN PRN Reason: Nausea Temazepam (Restoril) 15 mg PO BEDTIME PRN PRN Reason: Sleep Last Admin: 09/15/19 20:53 Dose: 15 mg Discontinued Medications Aspirin (Aspirin) 324 mg PO ONETIME ONE Stop: 09/15/19 09:34 Last Admin: 09/15/19 09:45 Dose: 324 mg Atorvastatin Calcium (Lipitor) 40 mg PO BEDTIME [facility] Al Hydroxide/Mg Hydroxide 15 (ml/ Lidocaine HCl 5 ml) 0 ml PO ONETIME ONE Stop: 09/15/19 09:39 Last Admin: 09/15/19 09:45 Dose: 1 each <[place] Daily - Last Filed: 09/16/19 20:38> Discharge Summary - Referral to Home Health Primary Care Physician: Patsy Cee MD - Patient Data Vitals - Most Recent: Last Vital Signs Temp 36.1 C 09/16/19 12:12 Pulse 63 09/16/19 12:12 Resp 16 09/16/19 12:12 BP 118/78 09/16/19 12:12 Pulse Ox 98 09/16/19 12:12 I&O - Last 24 hours: Intake & Output 09/16/19 09/16/19 09/16/19 06:59 14:59 22:59 Intake Total 520 600 Output Total 550 1000 Balance -30 -400 Lab Results - Last 24 hrs: Laboratory Results - last 24 hr 09/15/19 09/16/19 09/16/19 Range/Units 21:05 06:04 06:04 WBC 8.94 (4.0-11.0) K/uL RBC 3.79 L (4.30-5.90) M/uL Hgb 12.0 (12.0-16.0) g/dL Hct 37.5 (36.0-46.0) % MCV 98.9 H (80.0-98.0) fL MCH 31.7 (27.0-32.0) pg MCHC 32.0 (31.0-37.0) g/dL RDW Std Deviation 49.6 (28.0-62.0) fl RDW Coeff of Tamy 14 (11.0-15.0) % Plt Count 384 (150-400) K/uL MPV 9.80 (7.40-12.00) fL Neut % (Auto) 47.4 L (48.0-80.0) % Lymph % (Auto) 41.5 H (16.0-40.0) % [place] % (Auto) 8.2 (0.0-15.0) % Eos % (Auto) 2.3 (0.0-7.0) % Baso % (Auto) 0.6 (0.0-1.5) % Neut # (Auto) 4.2 (1.4-5.7) K/uL Lymph # (Auto) 3.7 H (0.6-2.4) K/uL [place] # (Auto) 0.7 (0.0-0.8) K/uL Eos # (Auto) 0.2 (0.0-0.7) K/uL Baso # (Auto) 0.1 (0.0-0.1) K/uL Nucleated RBC % 0.0 /100WBC Nucleated RBCs # 0 K/uL Sodium 140 (136-145) mmol/L Potassium 4.7 (3.5-5.1) mmol/L Chloride 104 (98-107) mmol/L Carbon Dioxide 28.2 (21.0-32.0) mmol/L BUN 19 H (7.0-18.0) mg/dL Creatinine 0.8 (0.6-1.0) mg/dL Est Cr Clr Drug Dosing 67.00 mL/min Estimated GFR (MDRD) > 60.0 ml/min Glucose 90 (74-106) mg/dL Calcium 8.7 (8.5-10.1) mg/dL Total Bilirubin 0.3 (0.2-1.0) mg/dL AST 19 (15-37) IU/L ALT 29 (14-63) IU/L Alkaline Phosphatase 64 (46-116) U/L Troponin I < 0.050 (0.000-0.056) ng/mL Total Protein 7.0 (6.4-8.2) g/dL Albumin 3.5 (3.4-5.0) g/dL Globulin 3.5 (2.6-4.0) g/dL Albumin/Globulin Ratio 1.0 (0.9-1.6) Med Orders - Current: Current Medications Discontinued Medications Acetaminophen (Tylenol) 650 mg PO Q4H PRN PRN Reason: Pain (Mild 1-3)/fever Last Admin: 09/16/19 07:56 Dose: 650 mg Aspirin (Aspirin) 324 mg PO ONETIME ONE Stop: 09/15/19 09:34 Last Admin: 09/15/19 09:45 Dose: 324 mg Aspirin (Halfprin) 81 mg PO DAILY [facility] Last Admin: 09/16/19 09:18 Dose: 81 mg Atorvastatin Calcium (Lipitor) 40 mg PO BEDTIME DANNY Atorvastatin Calcium (Lipitor) 20 mg PO BEDTIME [facility] Last Admin: 09/15/19 20:53 Dose: 20 mg Bupropion HCl (Wellbutrin Xl) 300 mg PO DAILY [facility] Last Admin: 09/16/19 09:18 Dose: 300 mg Al Hydroxide/Mg Hydroxide 15 (ml/ Lidocaine HCl 5 ml) 0 ml PO ONETIME ONE Stop: 09/15/19 09:39 Last Admin: 09/15/19 09:45 Dose: 1 each Enoxaparin Sodium (Lovenox) 40 mg SUBCUT Q24H [facility] Last Admin: 09/15/19 14:17 Dose: 40 mg Lisinopril (Prinivil) 20 mg PO DAILY [facility] Last Admin: 09/16/19 09:18 Dose: 20 mg Morphine Sulfate (Morphine) 2 mg IVPUSH Q2H PRN PRN Reason: Pain (severe 7-10) Stop: 09/16/19 13:47 Last Admin: 09/15/19 14:16 Dose: 2 mg Ondansetron HCl (Zofran Odt) 4 mg PO Q4H PRN PRN Reason: nausea, able to take PO Ondansetron HCl (Zofran) 4 mg IVPUSH Q4H PRN PRN Reason: Nausea Temazepam (Restoril) 15 mg PO BEDTIME PRN PRN Reason: Sleep Last Admin: 09/15/19 20:53 Dose: 15 mg - Free Text/Narrative Note: I have seen and evaluated the patient with the resident. I have discussed findings and treatment plan with the resident. I agree with the assessment and plan outlined in the following note.
== END 2019-09-16 12:30 | disposition home or self-care (01) ==
LOC: MW.ED 09:15 → MW.MS 11:23
PROVIDERS: ADMIT Internal Medicine; ATTEND Internal Medicine
DX: R07.89 Other chest pain (principal); R53.1 Weakness; I10 Essential (primary) hypertension; E78.00 Pure hypercholesterolemia, unspecified; F17.200 Nicotine dependence, unspecified, uncomplicated; Z79.82 Long term (current) use of aspirin; Z79.899 Other long term (current) drug therapy
CPT/HCPCS: 36415; 71046; 80053; 83690; 83735; 84443; 84484; 85025; 93005; 93306; 96372; 96374; 99284; A9270; G0378; J1650; J2270